=== PATIENT | female | born 1960 | race Caucasian/White ===

== ENCOUNTER 2023-07-21 11:44 | Emergency (ER) | payer MEDICARE, MEDICAID ==
[~2023-07-21] VITALS: Ht 162.6 cm; Wt 91.0 kg
[~2023-07-21 11:44] MED LIST: LISI-186 PO; METF-414 PO; SIMV10TA97 PO
[2023-07-21 12:05] VITALS: BP 151/92; O2SAT 96
[2023-07-21] MEDS ORDERED: ACETAMINOPHEN 325MG TABLET PO ONE (14:45)
[2023-07-21] MEDS ORDERED: ACET-2708 MT (17:02)
[2023-07-21 17:51] VITALS: PULSE 99; RESP 16; TEMP 98.7
== END 2023-07-21 17:52 | disposition home or self-care (01) ==
LOC: ER 13:04
DX: S63.502A Unspecified sprain of left wrist, initial encounter (principal); E11.9 Type 2 diabetes mellitus without complications; E78.00 Pure hypercholesterolemia, unspecified; I10 Essential (primary) hypertension; Z87.19 Personal history of other diseases of the digestive system; W18.39XA Other fall on same level, initial encounter; Y93.89 Activity, other specified; Y92.89 Other specified places as the place of occurrence of the external cause; Y99.8 Other external cause status
CPT/HCPCS: 73110; 99283